=== PATIENT | male | born 1985 | race Caucasian/White ===

== ENCOUNTER 2019-04-28 06:42 | Emergency (ER) | payer SELFPAY ==
[~2019-04-28] VITALS: Ht 175.3 cm; Wt 90.0 kg
[2019-04-28] MEDS ORDERED: KETOROLAC 60MG/2ML VIAL IM ONE (07:30)
[2019-04-28] MEDS ORDERED: CYCLOBENZAPRINE 10MG TABLET PO ONE (07:30)
[2019-04-28 07:31] VITALS: BP 139/73
== END 2019-04-28 08:07 | disposition home or self-care (01) ==
LOC: ER 06:42
DX: M54.6 Pain in thoracic spine (principal); V49.49XA Driver injured in collision with other motor vehicles in traffic accident, initial encounter; Y93.89 Activity, other specified; Y92.89 Other specified places as the place of occurrence of the external cause; Y99.8 Other external cause status
CPT/HCPCS: 96372; 99283; J1885